=== PATIENT | male | born 1955 | race African-American/Black ===

== ENCOUNTER 2019-03-22 07:16 | Emergency (ER) | payer BC ==
[~2019-03-22] VITALS: Ht 167.6 cm; Wt 78.0 kg
[2019-03-22 08:20] VITALS: BP 149/69
== END 2019-03-22 08:30 | disposition home or self-care (01) ==
LOC: ER 07:16
DX: M76.62 Achilles tendinitis, left leg (principal)
CPT/HCPCS: 99281